=== PATIENT | male | born 1970 | race Caucasian/White ===

== ENCOUNTER → 2021-09-19 | Outpatient (CLI) | payer OTHER ==
[2021-09-19 11:31] LABS: HEMATOCRIT 46.9 % (42.0-52.0); HEMOGLOBIN 15.9 gm/dL (14.0-18.0); MCH 30.4 pg (26.0-34.0); MCHC 33.9 g/dL (28.0-37.0); MCV 89.7 fL (80.0-100.0); MPV 9.8 fl. (7.2-11.1); RBC 5.23 mil/uL (4.50-6.00); RDW-CV 13.9 % (10.5-14.5)
[2021-09-21 16:07] LABS: ANA INTERPRETATION Negative (())
[2021-09-28 11:21] LABS: B.burgdorf.IgG Negative (()); B.burgdorf.IgM Positive (())
== END ==
LOC: M.LAB 10:32
DX: H47.011 Ischemic optic neuropathy, right eye (principal)